=== PATIENT | female | born 1995 | race Caucasian/White ===

== ENCOUNTER 2021-03-30 07:15 | Day surgery (SDC) | payer OTHER, SELFPAY ==
[~2021-03-30] VITALS: Ht 170.2 cm; Wt 92.1 kg
[2021-03-30] MEDS ORDERED: fentaNYL CITRATE/PF 100 MCG/2 ML AMP ONE (07:35)
[2021-03-30] MEDS ORDERED: SIMETHICONE 40 MG/0.6 ML ML ONE (07:35)
[2021-03-30] MEDS ORDERED: MIDAZOLAM HCL 5 MG/5 ML VIAL ONE ×2 (07:36→08:49)
[2021-03-30 08:14] LABS: HCG,QUAL RESULT NEGATIVE (NEGATIVE)
[2021-03-30 12:59] VITALS: BP_SYST 112
== END 2021-03-30 10:00 | disposition home or self-care (01) ==
LOC: SDS 07:15 → SMU 07:15 → SDS 10:00
PROVIDERS: ATTEND Surgery
DX: K62.5 Hemorrhage of anus and rectum (principal); K60.5 Anorectal fistula; Z79.899 Other long term (current) drug therapy; Z20.822 Contact with and (suspected) exposure to COVID-19
CPT/HCPCS: 45378; 84703; 99152; G0378; J2250; J3010; J7030; U0003; U0005